=== PATIENT | female | born 2000 | race Hispanic/Latino ===

== ENCOUNTER → 2023-04-05 | Outpatient (CLI) | payer OTHER | LOC: M WHC 12:03 | PROVIDERS: ATTEND Obstetrics & Gynecology | DX: Z36.9 Encounter for antenatal screening, unspecified (principal); Z3A.22 22 weeks gestation of pregnancy ==

== ENCOUNTER 2023-07-14 14:59 | Inpatient (IN) | payer OTHER ==
[2023-07-14] VITALS (32 sets, daily range): BP systolic 103–172; BP diastolic 54–107
[~2023-07-14] VITALS: Ht 160 cm; Wt 116.6 kg
[2023-07-14] MEDS ORDERED: PRENTAB9 PO (15:25)
[2023-07-14] MEDS ORDERED: LABE200T5 PO (15:25)
[2023-07-14] MEDS ORDERED: ASPI81CH33 PO (15:25)
[2023-07-14] MEDS ORDERED: HOME MED LIST COMPLETE! XX SCH (15:35)
[2023-07-14] MEDS ORDERED: NIFEdipine 10 MG CAP PO ONE (15:40)
[2023-07-14] MEDS ORDERED: LACTATED RINGER'S 1000 ML IV STA (15:41)
[2023-07-14] MEDS ORDERED: LIDOCAINE 1% MDV 20ML VIAL INFIL PRN (15:45)
[2023-07-14] MEDS ORDERED: TRANEXAMIC ACID INJection 1,000 MG in NS 100 ML IV PRN (15:45)
[2023-07-14] MEDS ORDERED: OXYTOCIN INJ 10UNITS/ML 1ML VIAL IM PRN (15:45)
[2023-07-14] MEDS ORDERED: METHYLERGONOVINE MALEATE 0.2MG/ML 1ML VIAL IM PRN (15:45)
[2023-07-14] MEDS ORDERED: OXYTOCIN DRIP 30 UNITS in IV 1 EA IV PRN ×6 (15:45)
[2023-07-14] MEDS ORDERED: CARBOPROST TROMETHAMINE 250 MCG/ML AMP IM PRN (15:45)
[2023-07-14] MEDS ORDERED: MAG Sulf (L&D) 4 GM/100 ML 4 GM in IV 1 EA IV ONE (16:00)
[2023-07-14] MEDS ORDERED: CALCIUM GLUCONATE 1,000 MG in D5W MINI-BAG PLUS 100 ML IV PRN (16:00)
[2023-07-14] MEDS: LR 1,000 ML IV SCH (16:17)
[2023-07-14 16:19] LABS: HEMATOCRIT 36.5 % (36.0-47.0); HEMOGLOBIN 12.9 g/dl (12.0-15.5); MEAN CORPUSCULAR HEMOGLOBIN 32.8 pg (27.0-33.0); MEAN CORPUSCULAR HGB CONC 35.3 g/dl (32.0-36.5); MEAN CORPUSCULAR VOLUME 92.9 fl (80.0-96.0); PLATELET COUNT, AUTOMATED 145 10^3/uL (150-450); RED BLOOD COUNT 3.93 10^6/uL (4.00-5.40); WHITE BLOOD COUNT 9.5 10^3/uL (4.0-10.0)
[2023-07-14 16:21] LABS: APPEARANCE, URINE HAZY (CLEAR); BACTERIA, URINE AUTO 1+ (NEGATIVE); BILIRUBIN, URINE AUTO NEGATIVE (NEGATIVE); BLOOD, URINE BLOOD NEGATIVE (NEGATIVE); COLOR, URINE YELLOW (YELLOW); GLUCOSE, URINE (UA) AUTO NEGATIVE (NEGATIVE); KETONE, URINE AUTO 1+ mg/dL (NEGATIVE); LEUKOCYTE ESTERASE, URINE AUTO 1+ (NEGATIVE); MUCUS, URINE SMALL (NEGATIVE); NITRITE, URINE AUTO NEGATIVE (NEGATIVE); PROTEIN, URINE AUTO NEGATIVE (NEGATIVE); RBC, URINE AUTO 1 /HPF (0-3); SPECIFIC GRAVITY URINE AUTO 1.013 (1.002-1.035); SQUAMOUS EPITHELIAL CELL UR AU 19 /HPF (0-6); UROBILINOGEN, URINE AUTO 0.2 mg/dL (0.0-2.0); WBC, URINE AUTO 3 /HPF (0-3)
[2023-07-14] MEDS: MAG Sulf (OBGYN) 20GM/500ML 20,000 MG in IV 1 EA IV SCH (16:43)
[2023-07-14] MEDS: miSOPROStol 50MCG 1/2 TABLET PO SCH ×2 (16:45→21:14)
[2023-07-14 16:59] LABS: TOTAL PROTEIN,RANDOM URINE 26.5 MG/DL (0.0-14.0)
[2023-07-14 17:04] LABS: CREATININE,RANDOM URINE 75.9 MG/DL
[2023-07-14 17:06] LABS: LDH LACTATE DEHYDROGENASE 183 U/L (120-246)
[2023-07-14 17:07] LABS: ALT/SGPT 15 U/L (7.0-40); AST/SGOT 16 U/L (<34); BILIRUBIN,TOTAL 0.4 MG/DL (0.3-1.2); CREATININE FOR GFR 0.51 MG/DL (0.55-1.30); GLOMERULAR FILTRATION RATE > 60.0 (>60)
[2023-07-14 17:08] LABS: URIC ACID 4.3 MG/DL (3.1-7.8)
[2023-07-14] MEDS: LABETALOL 200 MG TAB PO SCH (21:14)
[2023-07-15] VITALS (41 sets, daily range): BP systolic 103–159; BP diastolic 50–89
[2023-07-15] MEDS: miSOPROStol 50MCG 1/2 TABLET PO SCH ×2 (01:20→09:19)
[2023-07-15] MEDS: MAG Sulf (OBGYN) 20GM/500ML 20,000 MG in IV 1 EA IV SCH ×3 (02:30→23:30)
[2023-07-15] MEDS: LABETALOL 200 MG TAB PO SCH ×2 (09:19→21:00)
[2023-07-15] MEDS ORDERED: OXYTOCIN DRIP 30 UNITS in IV 1 EA IV SCH ×2 (14:05→23:35)
[2023-07-15] MEDS ORDERED: PROMETHAZINE 25MG/ML 1ML VIAL IV ONE (14:45)
[2023-07-15] MEDS ORDERED: BUTORPHANOL 2 MG/ML 1ML VIAL IV PRN (14:45)
[2023-07-15] MEDS: LR 1,000 ML IV SCH (16:39)
[2023-07-15 18:12] LABS: HEMATOCRIT 36.4 % (36.0-47.0); HEMOGLOBIN 12.7 g/dl (12.0-15.5); MEAN CORPUSCULAR HEMOGLOBIN 33.2 pg (27.0-33.0); MEAN CORPUSCULAR HGB CONC 34.9 g/dl (32.0-36.5); PLATELET COUNT, AUTOMATED 132 10^3/uL (150-450); RED BLOOD COUNT 3.83 10^6/uL (4.00-5.40); WHITE BLOOD COUNT 12.5 10^3/uL (4.0-10.0)
[2023-07-15] MEDS ORDERED: FENTANYL/ROPIVACAINE/NACL BAG 100 ML EPIDURAL SCH ×2 (18:35)
[2023-07-15] MEDS ORDERED: diphenhydrAMINE 50MG/ML VIAL IV PRN (18:35)
[2023-07-15] MEDS ORDERED: ePHEDrine SULFATE 25 MG/5 ML(5MG/ML) SYRINGE IVP PRN (18:35)
[2023-07-15] MEDS ORDERED: LR 500 ML IV PRN (18:35)
[2023-07-15] MEDS ORDERED: EPIDURAL/PCA KEYS XX PRN (18:35)
[2023-07-15] MEDS ORDERED: NALOXONE INJ 0.4MG/1ML VIAL IV PRN (18:35)
[2023-07-15] MEDS ORDERED: ONDANSETRON 4MG 2ML VIAL IV PRN ×2 (18:35→23:35)
[2023-07-15] MEDS ORDERED: IBUPROFEN 600MG TAB PO PRN (23:35)
[2023-07-15] MEDS ORDERED: ACETAMINOPHEN TAB 650MG DOSE (2X325MG) PO PRN (23:35)
[2023-07-16] VITALS (13 sets, daily range): BP systolic 119–151; BP diastolic 63–87; O2SAT 98–99
[2023-07-16] MEDS: ACETAMINOPHEN 500 MG TAB PO PRN ×3 (00:41→21:17)
[2023-07-16] MEDS: IBUPROFEN 800 MG TAB PO PRN ×2 (02:24→14:54)
[2023-07-16] MEDS: LR 1,000 ML IV SCH (05:30)
[2023-07-16] MEDS: DIBUCAINE 1% OINTMENT 30GM TOP PRN (06:07)
[2023-07-16] MEDS: LABETALOL 200 MG TAB PO SCH ×3 (09:00→21:06)
[2023-07-16] MEDS ORDERED: oxyCODONE 5MG TAB PO PRN ×2 (14:30)
[2023-07-16] MEDS: PRENATAL VITAMINS CHEWABLE TABLET PO SCH (14:53)
[2023-07-16] MEDS: DOCUSATE SODIUM 100MG CAPSULE PO SCH ×2 (14:54→21:00)
[2023-07-17] VITALS (8 sets, daily range): BP systolic 130–164; BP diastolic 68–94; O2SAT 98–99
[2023-07-17] MEDS: IBUPROFEN 800 MG TAB PO PRN ×3 (00:31→18:17)
[2023-07-17] MEDS: ACETAMINOPHEN 500 MG TAB PO PRN ×2 (07:21→17:06)
[2023-07-17] MEDS: PRENATAL VITAMINS CHEWABLE TABLET PO SCH (09:34)
[2023-07-17] MEDS: DOCUSATE SODIUM 100MG CAPSULE PO SCH ×2 (09:34→20:13)
[2023-07-17] MEDS: LABETALOL 200 MG TAB PO SCH ×2 (09:35→18:44)
[2023-07-17] MEDS: DIBUCAINE 1% OINTMENT 30GM TOP PRN (09:36)
[2023-07-17] MEDS: ESTROGENS VAGINAL CREAM 30GM PV SCH (13:17)
[2023-07-18 02:00] VITALS: BP 135/79; O2SAT 97
[2023-07-18] MEDS: IBUPROFEN 800 MG TAB PO PRN (04:48)
[2023-07-18 06:01] VITALS: BP 138/76; O2SAT 99
[2023-07-18] MEDS: PRENATAL VITAMINS CHEWABLE TABLET PO SCH (08:57)
[2023-07-18 08:58] VITALS: BP 134/77
[2023-07-18] MEDS: ESTROGENS VAGINAL CREAM 30GM PV SCH (08:58)
[2023-07-18] MEDS: DOCUSATE SODIUM 100MG CAPSULE PO SCH (08:58)
[2023-07-18] MEDS: LABETALOL 200 MG TAB PO SCH (08:58)
== END 2023-07-18 12:00 | disposition home or self-care (01) | DRG 807 ==
LOC: M LDI 14:59 → M OBS 07-16 16:19
PROVIDERS: ADMIT Obstetrics & Gynecology; ATTEND Advanced Practice Midwife
PROC: 3E0P7GC Introduction of Other Therapeutic Substance into Female Reproductive, Via Natural or Artificial Opening (ICD-10-PCS; 2023-07-14)
PROC: 10E0XZZ Delivery of Products of Conception, External Approach (ICD-10-PCS; principal; 2023-07-15)
PROC: 0HQ9XZZ Repair Perineum Skin, External Approach (ICD-10-PCS; 2023-07-15)
PROC: 10907ZC Drainage of Amniotic Fluid, Therapeutic from Products of Conception, Via Natural or Artificial Opening (ICD-10-PCS; 2023-07-15)
DX: O11.4 Pre-existing hypertension with pre-eclampsia, complicating childbirth (principal); Z37.0 Single live birth; Z3A.37 37 weeks gestation of pregnancy; Z79.82 Long term (current) use of aspirin; Z79.899 Other long term (current) drug therapy; O69.1XX0 Labor and delivery complicated by cord around neck, with compression, not applicable or unspecified; O70.0 First degree perineal laceration during delivery